=== PATIENT | male | born 1940 | race Caucasian/White ===

== ENCOUNTER 2020-09-05 04:32 | Day surgery (SDC) | payer MEDICARE, OTHER ==
--- NOTE | 2020-09-05 04:38 | EDM.PDOC ---
ED HPI GENERAL MEDICAL PROBLEM - General Chief Complaint: Lower Extremity Injury/Pain Stated Complaint: MEDICAL [facility]IA [facility] Time Seen by Provider: 09/05/20 04:38 Source of Information: Reports: Patient History Limitations: Reports: No Limitations - History of Present Illness INITIAL COMMENTS - FREE TEXT/NARRATIVE: pt arrived with a open wound on the left inner ankle. He got up in the nite and twisted the ankle. Onset: Today, Sudden Duration: Minutes: Location: Reports: Lower Extremity, Left Associated Symptoms: Reports: No Other Symptoms left ankle Pain Score (Numeric/FACES): 2 - Related Data Allergies Allergy/AdvReac Type Severity Reaction Status Date / Time No Known Allergies Allergy Verified 09/05/20 04:34 Home Meds: Home Meds Acetaminophen/HYDROcodone [[place] 325-5 MG] 1 tab PO Q4H PRN #15 tab 09/05/20 [Rx] Ascorbic Acid [Vitamin C] 1,000 mg PO DAILY 09/05/20 [History] Ciprofloxacin [Ciloxan 0.3% Ophth Soln] 1 drop .ROUTE ASDIRECTED 09/05/20 [History] Ezetimibe [Zetia] 10 mg PO DAILY 09/05/20 [History] Fenofibrate,Micronized [Fenofibrate] 67 mg PO DAILY 09/05/20 [History] Gabapentin [Neurontin] 100 mg PO BID 09/05/20 [History] Insulin NPH/Insulin Reg,Human [Novolin 70-30] 25 units SQ BID 09/05/20 [History] Losartan [Cozaar] 50 mg PO DAILY 09/05/20 [History] Multivitamin with Minerals [Multiple Vitamin] 1 tab PO DAILY 09/05/20 [History] Nitroglycerin 0.4 mg SL ASDIRECTED 09/05/20 [History] [place]on 3,6,9 Combination No.7 [Tol[place]on Dha] 1 tab PO DAILY 09/05/20 [History] Ubidecarenone [Co Q-10] 1 tab PO DAILY 09/05/20 [History] atorvaSTATin [Lipitor] 1 tab PO DAILY 09/05/20 [History] carvediloL [Carvedilol] 6.25 mg PO BID 09/05/20 [History] cephALEXin [Keflex] 500 mg PO Q8H 7 Days #21 cap 09/05/20 [Rx] dexAMETHasone [Maxidex 0.1% Ophth Susp] 1 drop .ROUTE ASDIRECTED 09/05/20 [History] Review of Systems - Review of Systems Review Of Systems: See Below Constitutional: Reports: No Symptoms Eyes: Reports: No Symptoms Ears: Reports: No Symptoms Nose: Reports: No Symptoms Mouth/Throat: Reports: No Symptoms Respiratory: Reports: No Symptoms Cardiovascular: Reports: No Symptoms GI/Abdominal: Reports: No Symptoms Genitourinary: Reports: No Symptoms Musculoskeletal: Reports: Other (open wound on the inner aspect of the left ankle. ) Skin: Reports: Other (open wound on the inner aspect of the ankle. ) Neurological: Reports: No Symptoms, Other (pt has a history of severe neuropath y. ) Psychiatric: Reports: No Symptoms ED EXAM, GENERAL - Physical Exam Exam: See Below Free Text/Narrative:: pt arrived with a open wound on the inner aspect of the left ankle. There is bone exposed. He fell and twisted his ankle. Exam Limited By: No Limitations General Appearance: Alert, Anxious, Moderate Distress, Other (pt did have pain meds in the ambulance. ) Ears: Normal TMs Nose: Normal Inspection Throat/Mouth: Normal Inspection Head: Atraumatic Neck: Normal Inspection Respiratory/Chest: No Respiratory Distress Cardiovascular: Regular Rate, Rhythm GI/Abdominal: Soft, Non-Tender (Male) Exam: Deferred Rectal (Males) Exam: Deferred Back Exam: Normal Inspection Extremities: Other (pt has a open wound on the inner aspect of the left ankle the joint appears exposed. He has severe neuropathy and does not have good sensation. both feet are cool and do not have good pulses. ) Neurological: Alert, Oriented, Normal Cognition Psychiatric: Anxious Course - Vital Signs Last Recorded V/S: Last Vital Signs Temp 36.1 C 09/05/20 09:00 Pulse 102 H 09/05/20 14:30 Resp 16 09/05/20 09:10 BP 141/74 H 09/05/20 14:30 Pulse Ox 96 09/05/20 09:00 - Orders/Labs/Meds Labs: Laboratory Tests 09/05/20 09/05/20 09/05/20 Range/Units 04:30 04:30 04:30 WBC 7.0 (4.5-11.0) K/uL RBC 3.41 L (4.30-5.90) M/uL Hgb 10.6 L (12.0-15.0) g/dL Hct 31.3 L (40.0-54.0) % MCV 92 (80-98) fL MCH 31 (27-31) pg MCHC 34 (32-36) % Plt Count 161 (150-400) K/uL Neut % (Auto) 66.0 (36-66) % Lymph % (Auto) 17.1 L (24-44) % Divide % (Auto) 12.1 H (2-6) % Eos % (Auto) 4.5 H (2-4) % Baso % (Auto) 0.3 (0-1) % Sodium 135 L (140-148) mmol/L Potassium 3.9 (3.6-5.2) mmol/L Chloride 100 (100-108) mmol/L Carbon Dioxide 19 L (21-32) mmol/L Anion Gap 19.9 H (5.0-14.0) mmol/L BUN 22 H (7-18) mg/dL Creatinine 2.3 H (0.8-1.3) mg/dL Est Cr Clr Drug Dosing 28.19 mL/min Estimated GFR (MDRD) 28 L (>60) Glucose 151 H (74-106) mg/dL POC Glucose (74-106) mg/dL Calcium 8.1 L (8.5-10.1) mg/dL Total Bilirubin 0.4 (0.2-1.0) mg/dL AST 24 (15-37) U/L ALT 26 (12-78) U/L Alkaline Phosphatase 45 L (46-116) U/L Total Protein 6.1 L (6.4-8.2) g/dL Albumin 3.2 L (3.4-5.0) g/dL Globulin 2.9 (2.3-3.5) g/dL Albumin/Globulin Ratio 1.1 L (1.2-2.2) Ethyl Alcohol 62 mg/dL Influenza Type A RNA (NEGATIVE) RSV RNA (INAAT) (NEGATIVE) Influenza Type B RNA (NEGATIVE) SARS-CoV-2 RNA (KIMMIE) (NEGATIVE) 09/05/20 09/05/20 Range/Units 05:43 09:18 WBC (4.5-11.0) K/uL RBC (4.30-5.90) M/uL Hgb (12.0-15.0) g/dL Hct (40.0-54.0) % MCV (80-98) fL MCH (27-31) pg MCHC (32-36) % Plt Count (150-400) K/uL Neut % (Auto) (36-66) % Lymph % (Auto) (24-44) % Divide % (Auto) (2-6) % Eos % (Auto) (2-4) % Baso % (Auto) (0-1) % Sodium (140-148) mmol/L Potassium (3.6-5.2) mmol/L Chloride (100-108) mmol/L Carbon Dioxide (21-32) mmol/L Anion Gap (5.0-14.0) mmol/L BUN (7-18) mg/dL Creatinine (0.8-1.3) mg/dL Est Cr Clr Drug Dosing mL/min Estimated GFR (MDRD) (>60) Glucose (74-106) mg/dL POC Glucose 142 H (74-106) mg/dL Calcium (8.5-10.1) mg/dL Total Bilirubin (0.2-1.0) mg/dL AST (15-37) U/L ALT (12-78) U/L Alkaline Phosphatase (46-116) U/L Total Protein (6.4-8.2) g/dL Albumin (3.4-5.0) g/dL Globulin (2.3-3.5) g/dL Albumin/Globulin Ratio (1.2-2.2) Ethyl Alcohol mg/dL Influenza Type A RNA Negative (NEGATIVE) RSV RNA (INAAT) Negative (NEGATIVE) Influenza Type B RNA Negative (NEGATIVE) SARS-CoV-2 RNA (KIMMIE) Negative (NEGATIVE) Meds: Medications Discontinued Medications Generic Name Dose Route Start Last Admin Trade Name Freq PRN Reason Stop Dose Admin Hydrocodone Bitart/Acetaminophen 1 tab 09/05/20 08:55 09/05/20 12:42 Acetaminophen/Hydrocodone 325-5 Mg Tab PO 1 tab Q3H PRN Administration Pain Atorvastatin Calcium 80 mg 09/05/20 21:00 Atorvastatin 20 Mg Tab PO BEDTIME WOOD Bandage/Support Products 1 applic 09/05/20 09:00 Nozin Nasal Gang Ripsaw Operator NASBOTH BID WOOD Bupivacaine HCl Confirm 09/05/20 06:35 09/05/20 07:41 Bupivacaine 0.5% 30 Ml Sdv Administered 09/05/20 06:36 30 ml Dose Administration 30 ml .ROUTE .STK-MED ONE Bupivacaine HCl/Epinephrine Bitart Confirm 09/05/20 06:12 Bupivacaine 0.5%/Epinephrine 1:200,000 50 Ml Mdv Administered 09/05/20 06:13 Dose 50 ml .ROUTE .STK-MED ONE Carvedilol 6.25 mg 09/05/20 10:30 09/05/20 10:34 Carvedilol 3.125 Mg Tab PO 6.25 mg BID WOOD Administration Cefazolin Sodium Confirm 09/05/20 05:58 09/05/20 06:06 Cefazolin 1 Gm Vial Administered 09/05/20 05:59 Not Given Dose 1 gm .ROUTE .STK-MED ONE Ciprofloxacin ml 09/05/20 09:15 Ciprofloxacin 0.3% Ophth Soln 5 Ml Bottle EYEBOTH ASDIRECTED WOOD Dexamethasone Confirm 09/05/20 06:07 Dexamethasone 4 Mg/Ml Sdv Administered 09/05/20 06:08 Dose 4 mg .ROUTE .STK-MED ONE Dexamethasone ml 09/05/20 09:15 Dexamethasone 0.1% Ophth Susp 5 Ml Bottle EYEBOTH ASDIRECTED WOOD Ezetimibe 10 mg 09/05/20 10:45 09/05/20 10:49 Ezetimibe 10 Mg Tab PO 10 mg DAILY WOOD Administration Ephedrine Sulfate Confirm 09/05/20 07:24 Ephedrine 50 Mg/Ml Sdv Administered 09/05/20 07:25 Dose 50 mg .ROUTE .STK-MED ONE Fenofibrate 67 mg 09/05/20 10:30 09/05/20 10:37 Fenofibrate,Micronized 67 Mg Cap PO 67 mg DAILY WOOD Administration Fentanyl Confirm 09/05/20 06:07 Fentanyl 250 Mcg/5 Ml Sdv Administered 09/05/20 06:08 Dose 250 mcg .ROUTE .STK-MED ONE Gabapentin 100 mg 09/05/20 10:30 09/05/20 10:38 Gabapentin 100 Mg Cap PO 100 mg BID WOOD Administration Glycopyrrolate Confirm 09/05/20 07:21 Glycopyrrolate 0.2 Mg/Ml 5 Ml Mdv Administered 09/05/20 07:22 Dose 1 mg .ROUTE .STK-MED ONE Sodium Chloride 1,000 mls @ 200 mls/hr 09/05/20 04:45 09/05/20 05:41 Normal Saline IV 200 mls/hr ASDIRECTED WOOD Administration Cefazolin Sodium/Dextrose 1 gm 50 mls @ 100 mls/hr 09/05/20 05:30 09/05/20 06:06 / Premix IV 09/05/20 05:59 100 mls/hr ONETIME ONE Administration Sodium Chloride Confirm 09/05/20 05:58 09/05/20 06:06 Normal Saline Administered 09/05/20 05:59 Not Given Dose 50 mls @ as directed .ROUTE .STK-MED ONE Sodium Chloride Confirm 09/05/20 07:24 Normal Saline Administered 09/05/20 07:25 Dose 10 mls @ as directed .ROUTE .STK-MED ONE Lactated Ringer's Confirm 09/05/20 08:15 Ringers, Lactated Administered 09/05/20 08:16 Dose 1,000 mls @ as directed .ROUTE .STK-MED ONE Sodium Chloride 1,000 mls @ 125 mls/hr 09/05/20 09:00 09/05/20 16:50 Normal Saline IV 125 mls/hr ASDIRECTED WOOD Administration Insulin Human Isoph/Insulin Regular 25 units 09/05/20 21:00 Insulin Nph/Insulin Regular,Human 70-30 100 Units/Ml 10 Ml Vial SUBCUT BID WOOD Losartan Potassium 50 mg 09/05/20 10:30 09/05/20 10:37 Losartan 50 Mg Tab PO 50 mg DAILY WOOD Administration Morphine Sulfate 1 mg 09/05/20 08:55 Morphine 2 Mg/Ml Syringe IVPUSH Q2H PRN Breakthrough Pain Multivitamins/Minerals 1 tab 09/05/20 10:30 09/05/20 10:38 Multivitamins With Iron/Calcium/Folic Acid/Minerals Tab PO 1 tab DAILY WOOD Administration Neostigmine Methylsulfate Confirm 09/05/20 07:21 Neostigmine Methylsulfate 1 Mg/Ml 5 Ml Syringe Administered 09/05/20 07:22 Dose 5 mg .ROUTE .STK-MED ONE Nitroglycerin 0.4 mg 09/05/20 09:15 Nitroglycerin 0.4 Mg Tab.Sl SL ASDIRECTED PRN CHEST PAIN Non-Formulary Medication 1 tab 09/06/20 09:00 Ubidecarenone [Co Q-10] PO DAILY WOOD Ondansetron HCl Confirm 09/05/20 06:07 Ondansetron 4 Mg/2 Ml Sdv Administered 09/05/20 06:08 Dose 4 mg .ROUTE .STK-MED ONE Propofol Confirm 09/05/20 06:07 Propofol 200 Mg/20 Ml Sdv Administered 09/05/20 06:08 Dose 200 mg .ROUTE .STK-MED ONE Rocuronium [place] Confirm 09/05/20 06:07 Rocuronium 50 Mg/5 Ml Vial Administered 09/05/20 06:08 Dose 50 mg .ROUTE .STK-MED ONE Succinylcholine Chloride Confirm 09/05/20 06:07 Succinylcholine 200 Mg/10 Ml Mdv Administered 09/05/20 06:08 Dose 200 mg .ROUTE .STK-MED ONE - Re-Assessments/Exams Free Text/Narrative Re-Assessment/Exam: 09/05/20 05:36 pt had the wound irrigated with 2 liters of fluid. He was given ancef 1 gram. He has good pain control. Dr Glover looked at the films and plans to do a repair early this am. His xrays show a fracture of the distal fibula and a dislocation of the distal tibia. Part of the tibia is pushing out medially. Departure - Departure Time of Disposition: 06:00 Disposition: Admitted As Inpatient 68 Condition: Fair Clinical Impression: Fracture dislocation of left ankle, Diabetes mellitus, Neuropathy - Discharge Information
[2020-09-05] MEDS ORDERED: Sodium Chloride 0.9% 1,000 ML IV SCH ×2 (04:45→09:00)
[2020-09-05] MEDS ORDERED: ceFAZolin 1 GM in Premix Bag 1 BAG IV ONE (05:30)
[2020-09-05] MEDS ORDERED: Sodium Chloride 0.9% 50 ML ONE (05:58)
[2020-09-05] MEDS ORDERED: ceFAZolin 1 GM Vial ONE (05:58)
[2020-09-05] MEDS ORDERED: Dexamethasone 4 MG/ML SDV ONE (06:07)
[2020-09-05] MEDS ORDERED: Succinylcholine 200 MG/10 ML MDV ONE (06:07)
[2020-09-05] MEDS ORDERED: Ondansetron 4 MG/2 ML SDV ONE (06:07)
[2020-09-05] MEDS ORDERED: Rocuronium 50 MG/5 ML Vial ONE (06:07)
[2020-09-05] MEDS ORDERED: Propofol 200 MG/20 ML SDV ONE (06:07)
[2020-09-05] MEDS ORDERED: fentaNYL 250 MCG/5 ML SDV ONE (06:07)
[2020-09-05] MEDS ORDERED: Bupivacaine 0.5%/EPINEPHrine 1:200,000 50 ML MDV ONE (06:12)
[2020-09-05 06:34] LABS: CORONAVIRUS COVID-19 NAA NEGATIVE (NEGATIVE)
[2020-09-05] MEDS ORDERED: Bupivacaine 0.5% 30 ML SDV ONE (06:35)
[2020-09-05] MEDS ORDERED: Neostigmine Methylsulfate 1 MG/ML 5 ML Syringe ONE (07:21)
[2020-09-05] MEDS ORDERED: Glycopyrrolate 0.2 MG/ML 5 ML MDV ONE (07:21)
[2020-09-05] MEDS ORDERED: Sodium Chloride 0.9% 10 ML ONE (07:24)
[2020-09-05] MEDS ORDERED: ePHEDrine 50 MG/ML SDV ONE (07:24)
[2020-09-05] MEDS ORDERED: Lactated Ringers 1,000 ML ONE (08:15)
[2020-09-05] MEDS ORDERED: Morphine 2 MG/ML SYRINGE IVPUSH PRN (08:55)
[2020-09-05] MEDS ORDERED: Acetaminophen/HYDROcodone 325-5 MG Tab PO PRN (08:55)
[2020-09-05] MEDS ORDERED: Nozin Nasal Sanitizer NASBOTH SCH (09:00)
--- NOTE | 2020-09-05 09:06 | CR ---
Ankle Min 3V Lt CLINICAL HISTORY: Open fracture FINDINGS: There is fracture of the distal fibula with lateral dislocation of the talus. There is fracture of the posterior distal tibia. There is some subcutaneous and intra-articular air. Impression: Tib-fib fracture dislocation
[2020-09-05] MEDS ORDERED: Nitroglycerin 0.4 MG Tab.SL SL PRN (09:15)
[2020-09-05] MEDS ORDERED: Ciprofloxacin 0.3% Ophth Soln 5 ML Bottle EYEBOTH SCH (09:15)
[2020-09-05] MEDS ORDERED: Dexamethasone 0.1% Ophth Susp 5 ML Bottle EYEBOTH SCH (09:15)
[2020-09-05] MEDS ORDERED: Fenofibrate,Micronized 67 MG Cap PO SCH (10:30)
[2020-09-05] MEDS ORDERED: Gabapentin 100 MG Cap PO SCH (10:30)
[2020-09-05] MEDS ORDERED: Losartan 50 MG Tab PO SCH (10:30)
[2020-09-05] MEDS ORDERED: Carvedilol 3.125 MG Tab PO SCH (10:30)
[2020-09-05] MEDS ORDERED: Multivitamins with Iron/Calcium/Folic Acid/Minerals Tab PO SCH (10:30)
[2020-09-05] MEDS ORDERED: atorvaSTATin 20 MG Tab PO SCH ×2 (10:30→21:00)
[2020-09-05] MEDS ORDERED: Ezetimibe 10 MG Tab PO SCH (10:45)
--- NOTE | 2020-09-05 15:10 | CR ---
Knee 3V Lt CLINICAL HISTORY: Pain, Swelling, fall FINDINGS: No acute fracture or dislocation is noted. There are no osseous lesions. There is some soft tissue swelling over the patellar region of the knee and over the patellar tendon. This may represent ecchymosis. There is mild soft tissue swelling over the anterior tibial tuberosity. There is lateral patellofemoral joint space narrowing and mild patellar spurring. Impression: Soft tissue swelling Osteoarthritic change No fracture or subluxation
[2020-09-05] MEDS ORDERED: Insulin NPH/Insulin Regular,Human 70-30 100 Units/ML 10 ML Vial SUBCUT SCH (21:00)
[2020-09-05] MEDS ORDERED: Non-Formulary Medication 1 Each (Carvedilol [Carvedilol] 6.25 MG Tablet) PO SCH (21:00)
[2020-09-06] MEDS ORDERED: Non-Formulary Medication 1 Each (Atorvastatin [Lipitor] 80 MG Tablet) PO SCH (09:00)
[2020-09-06] MEDS ORDERED: UBIDECARENONE 50 MG PO SCH (09:00)
[2020-09-06] MEDS ORDERED: Non-Formulary Medication 1 Each (Multivitamin With Minerals [Multiple Vitamin] 1 EACH Tabl PO SCH (09:00)
[2020-09-06] MEDS ORDERED: Ezetimibe 10 MG Tab PO SCH (09:00)
--- NOTE | 2020-09-18 18:10 | OR ---
DATE OF PROCEDURE: 09/05/2020 SURGEON: Owen Ledesma MD PREOPERATIVE DIAGNOSIS: Grade 3 open ankle dislocation with distal fibula fracture. POSTOPERATIVE DIAGNOSES: Grade 3 open ankle dislocation with distal fibula fracture including complete rupture of deltoid ligament. PROCEDURES: Reduction of ankle dislocation; repair of deltoid ligament; open reduction and internal fixation of distal fibula; closure of laceration, medial ankle. ANESTHESIA: General. INDICATIONS: Mr. Montaño is a 80-year-old gentleman visiting the area who sustained a fall early this morning resulting in dislocation of the left ankle, fracture of the distal fibula, and laceration over the medial malleolus with exposed distal tibia. He is taken emergently to the operating room for fixation of fracture, reduction and irrigation of the joint and closure of wound. Risks, benefits, and potential complications including the possibility of infection, wound healing difficulties, etc., were discussed. DESCRIPTION OF PROCEDURE: After adequate anesthesia was obtained, the patient was supine with a tourniquet about the left upper thigh. Left leg was prepped and draped in a sterile fashion using Betadine scrub and paint. The entire medial malleolus was exposed through a transverse laceration which measured approximately 5.5 cm. The wound was irrigated with a pulse lavage including the distal tibia and articular surface and ankle joint. Ankle was then reduced and irrigated once again with pulse lavage. A longitudinal incision was made over the lateral aspect of the ankle and carried down to the subcutaneous border of the fibula, and fracture was identified and reduced. This was held with a bone- holding clamp. Anterior cortex was drilled for an interfrag screw. Posterior cortex was then drilled and a 3.5 cortical screw was placed in lag fashion. Synthes contoured plate was secured to the lateral fibula using 3.5 cortical screws proximally and locking screws distally. Fracture reduction position of the hardware and ankle reduction were confirmed using fluoroscopy. Wounds were irrigated once again. Deltoid ligament was then repaired directly using #2 Ethibond. Skin and lateral incision were closed using 0 Vicryl in the deep layer, 2-0 Vicryl, and a running 3-0 Monocryl. Steri-Strips were applied. Medial laceration was closed using 2-0 Vicryl and 3-0 nylon in interrupted fashion. Xeroform gauze was placed over the laceration and the lateral incision. Sterile dressings were applied. A well- padded plaster AO splint was then placed with the foot in neutral position. The patient tolerated the procedure well and there were no complications. He was taken from the operating room in stable condition. Owen Ledesma MD /[id number] MTDD
== END 2020-09-05 17:15 | disposition home or self-care (01) ==
LOC: JP.ED 04:32 → JP.SDS 05:49
PROVIDERS: ATTEND Specialist
DX: S82.832C Other fracture of upper and lower end of left fibula, initial encounter for open fracture type IIIA, IIIB, or IIIC (principal); S93.422A Sprain of deltoid ligament of left ankle, initial encounter; E11.40 Type 2 diabetes mellitus with diabetic neuropathy, unspecified; Z01.812 Encounter for preprocedural laboratory examination; Z20.822 Contact with and (suspected) exposure to COVID-19; W01.0XXA Fall on same level from slipping, tripping and stumbling without subsequent striking against object, initial encounter
CPT/HCPCS: 0241U; 27792; 36415; 73562; 73610; 76000; 80053; 80307; 82947; 85025; 93005; 96365; 97162; 97165; 97530; 97535; 99284; 99285; A9270; C1713; J0330; J0690; J1100; J2405; J2704; J2710; J3010; J3490; J7030; J7120; 12002; 27695